=== PATIENT | male | born 1945 | race Caucasian/White ===

== ENCOUNTER → 2020-04-26 12:12 | Outpatient (BNVA) | payer MEDICARE, SELFPAY | PROVIDERS: PCP Internal Medicine; Visit Provider Orthopaedic Surgery | DX: M17.0 Bilateral primary osteoarthritis of knee (principal) | CPT/HCPCS: 20610; 99214; J1040 ==

== ENCOUNTER 2020-12-08 10:29 | Outpatient (REF) | payer MEDICARE, SELFPAY ==
[2020-12-08 11:34] LABS: Glucose Urine UA NEG (NEG); Leukocyte Esterase Urine NEG (NEG); Nitrite Urine NEG (NEG); PH 6.5 (5.0-8.0); Urine Blood NEG (NEG); Urine Ketones 5 MG/DL (NEG); Urine Protein NEG (NEG-TRACE)
[2020-12-08 11:35] LABS: Appearance Urine HAZY; Color Urine YELLOW
[2020-12-08 11:40] LABS: Hematocrit 45.6 % (42-52); Hemoglobin 15.2 g/dl (14.0-18.0); Mean Corpuscular HGB Conc 33.3 g/dl (31.0-36.0); Mean Corpuscular Hemoglobin 30.1 pg (27.0-33.0); Mean Corpuscular Volume 90.3 fL (80-98); Mean Platelet Volume 9.6 fL (9.4-12.4); Platelet Count 246 X10*3/uL (160-400); Red Blood Count 5.05 X10*6/uL (4.60-5.80); Red Cell Distribution Width 12.6 % (11.0-16.0); White Blood Count 6.8 X10*3/uL (4.8-10.8)
[2020-12-08 12:22] LABS: Prostate Specific Antigen 2.87 ng/mL (<0.05-4.0); Vitamin D 25-OH Total 42.9 ng/mL (>30)
[2020-12-08 12:30] LABS: Alanine Aminotransferase 29 U/L (0-40); Albumin Level 4.5 g/dL (3.5-5.0); Alkaline Phosphatase 74 U/L (39-117); Anion Gap 14 (12-20); Aspartate Amino Transferase 41 U/L (5-37); Bilirubin Total 0.8 mg/dL (0.0-1.0); Blood Urea Nitrogen 12 mg/dL (9-16); Calcium 9.6 mg/dL (8.4-10.2); Carbon Dioxide 27 mmol/L (22-29); Chloride 102 mmol/L (96-108); Cholesterol 200 mg/dL; Estimated Glomerular Filt Rate > 60; Glucose Fasting 97 mg/dL (60-99); HDL Cholesterol 72 mg/dL; LDL Cholesterol Calculated 112 mg/dl; Potassium 4.6 mmol/L (3.3-5.1); Sodium 138 mmol/L (135-145); Total Protein 7.2 g/dL (6.5-8.0); Triglycerides 81 mg/dL
== END 2020-12-08 10:30 | disposition home or self-care (01) ==
LOC: HO.LAB 10:29
PROVIDERS: PCP Internal Medicine; Visit Provider Internal Medicine
DX: Z00.00 Encounter for general adult medical examination without abnormal findings (principal); I10 Essential (primary) hypertension; E78.00 Pure hypercholesterolemia, unspecified; Z12.5 Encounter for screening for malignant neoplasm of prostate
CPT/HCPCS: 36415; 80053; 80061; 81003; 82306; 84153; 85027

== ENCOUNTER 2021-06-06 10:08 | Outpatient (REF) | payer MEDICARE, SELFPAY ==
[2021-06-06 14:28] LABS: Alanine Aminotransferase 30 U/L (0-40); Albumin Level 4.5 g/dL (3.5-5.0); Alkaline Phosphatase 72 U/L (39-117); Anion Gap 16 (12-20); Aspartate Amino Transferase 45 U/L (5-37); Bilirubin Total 0.6 mg/dL (0.0-1.0); Blood Urea Nitrogen 14 mg/dL (9-16); Calcium 9.8 mg/dL (8.4-10.2); Carbon Dioxide 24 mmol/L (22-29); Chloride 104 mmol/L (96-108); Estimated Glomerular Filt Rate > 60; Glucose Random 96 mg/dL (60-115); Magnesium 2.2 mg/dL (1.6-2.6); Potassium 4.7 mmol/L (3.3-5.1); Sodium 139 mmol/L (135-145); Total Protein 7.3 g/dL (6.5-8.0)
[2021-06-06 14:50] LABS: Free T4 (Free Thyroxine) 1.03 ng/dL (0.71-1.85)
== END 2021-06-06 10:09 | disposition home or self-care (01) ==
LOC: HO.10HDL 10:08
PROVIDERS: Visit Provider Internal Medicine
DX: I10 Essential (primary) hypertension (principal); E78.00 Pure hypercholesterolemia, unspecified; I49.1 Atrial premature depolarization
CPT/HCPCS: 36415; 80053; 83735; 84439

== ENCOUNTER 2021-07-18 08:07 | Outpatient (REF) | payer MEDICARE, SELFPAY ==
--- NOTE | ~2021-07-18 | XR_ITS ---
EXAMINATION: XR knee standing BI, XR knee RT 2V CLINICAL INFORMATION: Reason for Exam M25.561 - Pain in right knee COMPARISON: Right knee radiographs 12/29/2018 TECHNIQUE: Two views of the right knee and one view of the bilateral knees XR/XR knee RT 2V FINDINGS/IMPRESSION: No acute fracture or dislocation. Advanced degenerative changes of the right knee predominantly involving the medial compartment, progressed from prior with near complete loss of medial compartment joint space, and medial and patellofemoral compartment osteophytes. No right suprapatellar joint effusion. Limited single view of the left knee demonstrates mild narrowing of the medial and lateral compartments. Advanced atherosclerotic vascular calcification.
--- NOTE | ~2021-07-18 | XR_ITS ---
EXAMINATION: XR knee standing BI, XR knee RT 2V CLINICAL INFORMATION: Reason for Exam M25.561 - Pain in right knee COMPARISON: Right knee radiographs 12/29/2018 TECHNIQUE: Two views of the right knee and one view of the bilateral knees XR/XR knee standing BI FINDINGS/IMPRESSION: No acute fracture or dislocation. Advanced degenerative changes of the right knee predominantly involving the medial compartment, progressed from prior with near complete loss of medial compartment joint space, and medial and patellofemoral compartment osteophytes. No right suprapatellar joint effusion. Limited single view of the left knee demonstrates mild narrowing of the medial and lateral compartments. Advanced atherosclerotic vascular calcification.
== END 2021-07-18 08:08 | disposition home or self-care (01) ==
LOC: HO.HOSX 08:07
PROVIDERS: Visit Provider Physician Assistant
DX: M17.11 Unilateral primary osteoarthritis, right knee (principal); M25.562 Pain in left knee
CPT/HCPCS: 20610; 73560; 73565; 99212; J1040

== ENCOUNTER 2022-06-29 11:16 | Outpatient (REF) | payer MEDICARE, SELFPAY ==
--- NOTE | ~2022-06-29 | XR_ITS ---
EXAMINATION: XR FOOT, LEFT CLINICAL INFORMATION: Left foot pain. COMPARISON: Left knee radiographs dated 05/29/2018. TECHNIQUE: AP, lateral, and oblique views of the left foot. FINDINGS: There is no acute fracture or dislocation. The tarsal bones are normally aligned. There is a small to moderate plantar calcaneal spur without significant change. The joint spaces are unremarkable. Moderate to severe atherosclerosis. XR/XR foot LT min 3V IMPRESSION: Small to moderate plantar calcaneal spur without significant change. No acute abnormality. Moderate to severe atherosclerosis.
== END 2022-06-29 11:17 | disposition home or self-care (01) ==
LOC: HO.HMGCX 11:16
PROVIDERS: PCP Internal Medicine; Visit Provider Nurse Practitioner Family
DX: M79.672 Pain in left foot (principal)
CPT/HCPCS: 73630

== ENCOUNTER 2022-07-26 08:16 | Outpatient (REF) | payer MEDICARE, SELFPAY ==
[2022-07-26 11:20] LABS: MANUAL DIFF FLAG NO
[2022-07-26 11:27] LABS: Basophils Absolute Auto 0.1 X10*3/uL (0.0-0.2); Basophils Percent Auto 0.9 % (0-2); Eosinophils Absolute Auto 0.2 X10*3/uL (0.0-0.4); Eosinophils Percent Auto 3.3 % (0-4); Hematocrit 45.6 % (42.0-52.0); Hemoglobin 15.1 g/dl (14.0-18.0); Imm Gran Abs Auto 0.02 X10*3/uL (0.00-0.03); Imm Gran Pct Auto 0.3 % (0.0-0.4); Lymphocytes Absolute Auto 1.8 X10*3/uL (1.2-4.9); Lymphocytes Percent Auto 28.9 % (20-40); Mean Corpuscular HGB Conc 33.1 g/dl (31.0-36.0); Mean Corpuscular Hemoglobin 30.6 pg (27.0-33.0); Mean Corpuscular Volume 92.3 fL (80.0-98.0); Mean Platelet Volume 10.4 fL (9.4-12.4); Monocytes Absolute Auto 0.7 X10*3/uL (0.1-1.2); Monocytes Percent Auto 11.6 % (2-11); Neutrophils Absolute Auto 3.5 x10*3/uL (2.0-8.3); Platelet Count 259 X10*3/uL (160-400); Red Blood Count 4.94 X10*6/uL (4.60-5.80); Red Cell Distribution Width 12.9 % (11.0-16.0); White Blood Count 6.4 X10*3/uL (4.8-10.8)
[2022-07-26 12:02] LABS: Alanine Aminotransferase 18 U/L (0-40); Albumin Level 4.5 g/dL (3.5-5.0); Alkaline Phosphatase 72 U/L (39-117); Anion Gap 15 (12-20); Aspartate Amino Transferase 25 U/L (5-37); Bilirubin Total 0.7 mg/dL (0.0-1.0); Blood Urea Nitrogen 14 mg/dL (9-16); Calcium 9.9 mg/dL (8.4-10.2); Carbon Dioxide 26 mmol/L (22-29); Chloride 104 mmol/L (96-108); Cholesterol 198 mg/dL; Estimated Glomerular Filt Rate > 60; Glucose Fasting 101 mg/dL (60-99); HDL Cholesterol 71 mg/dL; LDL Cholesterol Calculated 109 mg/dl; Potassium 4.2 mmol/L (3.3-5.1); Sodium 141 mmol/L (135-145); Total Protein 7.2 g/dL (6.5-8.0); Triglycerides 92 mg/dL
[2022-07-26 12:07] LABS: Prostate Specific Antigen Scr 2.79 ng/mL (<0.05-4.0)
== END 2022-07-26 08:17 | disposition home or self-care (01) ==
LOC: HO.HMGCLDS 08:16
PROVIDERS: PCP Internal Medicine; Visit Provider Internal Medicine
DX: Z12.5 Encounter for screening for malignant neoplasm of prostate (principal); I10 Essential (primary) hypertension; E78.00 Pure hypercholesterolemia, unspecified; N40.0 Benign prostatic hyperplasia without lower urinary tract symptoms
CPT/HCPCS: 36415; 80053; 80061; 84153; 85025

== ENCOUNTER 2023-01-30 09:42 | Outpatient (REF) | payer MEDICARE, SELFPAY ==
[2023-01-30 11:04] LABS: MANUAL DIFF FLAG NO
[2023-01-30 11:41] LABS: Basophils Absolute Auto 0.1 X10*3/uL (0.0-0.2); Basophils Percent Auto 0.8 % (0-2); Eosinophils Absolute Auto 0.1 X10*3/uL (0.0-0.4); Eosinophils Percent Auto 1.6 % (0-4); Hematocrit 44.2 % (42.0-52.0); Hemoglobin 14.8 g/dl (14.0-18.0); Imm Gran Abs Auto 0.04 X10*3/uL (0.00-0.03); Imm Gran Pct Auto 0.5 % (0.0-0.4); Lymphocytes Absolute Auto 1.4 X10*3/uL (1.2-4.9); Lymphocytes Percent Auto 18.7 % (20-40); Mean Corpuscular HGB Conc 33.5 g/dl (31.0-36.0); Mean Corpuscular Hemoglobin 31.4 pg (27.0-33.0); Mean Corpuscular Volume 93.8 fL (80.0-98.0); Mean Platelet Volume 9.9 fL (9.4-12.4); Monocytes Absolute Auto 0.8 X10*3/uL (0.1-1.2); Monocytes Percent Auto 10.5 % (2-11); Neutrophils Absolute Auto 5.2 x10*3/uL (2.0-8.3); Neutrophils Percent Auto 67.9 % (45-73); Platelet Count 287 X10*3/uL (160-400); Red Blood Count 4.71 X10*6/uL (4.60-5.80); Red Cell Distribution Width 12.5 % (11.0-16.0); White Blood Count 7.6 X10*3/uL (4.8-10.8)
[2023-01-30 12:00] LABS: Anion Gap 13 (12-20); Blood Urea Nitrogen 19 mg/dL (9-16); Calcium 10.2 mg/dL (8.4-10.2); Carbon Dioxide 26 mmol/L (22-29); Chloride 104 mmol/L (96-108); Estimated Glomerular Filt Rate > 60; Glucose Random 135 mg/dL (60-115); Potassium 4.5 mmol/L (3.3-5.1); Sodium 138 mmol/L (135-145)
[2023-01-30 12:21] LABS: Free T4 (Free Thyroxine) 0.93 ng/dL (0.71-1.85)
== END 2023-01-30 09:43 | disposition home or self-care (01) ==
LOC: HO.10HDL 09:42
PROVIDERS: Visit Provider Internal Medicine
DX: I10 Essential (primary) hypertension (principal); E78.00 Pure hypercholesterolemia, unspecified; R00.8 Other abnormalities of heart beat
CPT/HCPCS: 36415; 80048; 83735; 84439; 85025

== ENCOUNTER → 2023-03-27 13:39 | Outpatient (REF) | payer MEDICARE, SELFPAY ==
--- NOTE | 2023-03-27 13:42 | CA_ITS ---
Transthoracic Echocardiogram Patient (Last, First, Middle): Basim Vasques D Gender: Male Date of : 1945 Age: 77 Procedure Date: 03/27/2023 Procedure Type: Transthoracic Echocardiogram Location: OP Height: 167.64 cm Weight: 68.04 kg BSA: 1.77 m2 Heart Rate: bpm BP: 140 / 70 mmHg Signal Worker: DELMIS Referring MD: Micheal Rosas MD Body Design Checker: Toñito Acevedo MD Symptoms: I49.8 CA ARRHYTHMIA BIGEMINY, HTN Study Quality: Adequate ECG Rhythm: Sinus Conclusions: - 1. Normal LV ejection fraction 55-60% with grade 1 diastolic dysfunction 2. Normal cardiac valvular Dopplers 3. Normal RV systolic pressure 4. No gross pericardial effusion Findings Left Ventricle Normal left ventricular size, thickness, and systolic function. The visually estimated ejection fraction is between 55-60%. Spectral Doppler is indicative of an impaired relaxation filling pattern. E/E prime ratio is <8, consistent with normal filling pressures. Evidence suggests grade I (mild) diastolic dysfunction. Peak GLS is -18.4%, within normal limits. Right Ventricle Normal right ventricular cavity size and systolic function. Atria Both atria are normal in size. There is lipomatous hypertrophy of the interatrial septum. There is no evidence of interatrial shunt. Aortic Valve The aortic valve structure and function is likely normal. There is no aortic valve stenosis. There is no aortic valve regurgitation. Mitral Valve Likely normal mitral valve structure and function. There is trace mitral valve regurgitation. There is no mitral valve stenosis. Pulmonic Valve The pulmonic valve was not well visualized. Tricuspid Valve Likely normal tricuspid valve structure and function. There is trace tricuspid valve regurgitation. The right ventricular systolic pressure is normal. The right ventricular systolic pressure is 27 mmHg. Normal right atrial pressure. There is no evidence of pulmonary hypertension. Great Vessels All visible segments of the aorta are normal in size. The pulmonary artery was not well visualized. Venous The inferior vena cava is normal in size and collapses greater than 50% with inspiration. Pericardium/Pleural There is no evidence of pericardial effusion. Prior Study Comparison No prior study available for comparison. Measurements 2D Linear Measurements IVSd: 0.83 0.6-0.9/0.6-1.0 cm LVIDd: 4.21 3.9-5.3/4.2-5.9 cm LVIDd Index: 2.38 2.4-3.2/2.2-3.1 cm/m2 LVIDs: 1.95 2.0-3.6 cm LVPWd: 0.82 0.7-1.1 cm LA Diam: 2.90 2.7-3.8/3.0-4.0 cm LAIDs Index: 1.64 1.5-2.3 cm/m2 LV Mass: 131.14 67-162/88-224 g LV Mass Index: 74.09 43-95/49-115 g/m2 LVOT Diam: 2.00 3.0+(-)1.3 cm 2D Systolic Function EF 4C: 60.90 >55% EF 2C: 59.90 >55% EF BiP: 59.50 >55% Mitral Valve MV Pk E: 0.96 MV PK A: 1.23 MV Decel Time: 334.00 E/A: 0.80 E'Lateral: 10.10 E'Medial: 7.07 E/E' Med: 13.60 E/E' Lat: 9.50 PHT: 98.00 MVA PHT: 2.24 Decel Lea: 2.88 Aortic Valve AoV Pk Dony: 1.79 AoV Mn Dony: 1.21 AoV VTI: 0.39 AoV Pk Grad: 13.00 Aov Mn Grad: 7.00 CATE Cont.VTI: 2.24 LVOT LVOT Pk Dony: 1.26 LVOT Mn Dony: 0.82 LVOT VTI: 0.28 LVOT Pk Grad: 6.00 LVOT Mn Grad: 3.00 LVOT Diam: 2.00 LVOT Area: 3.14 Diastolic Function MV Pk E: 0.96 MV Pk A: 1.23 E/A: 0.80 E'Medial: 7.07 E/E' Med: 13.60 E' Laterial: 10.10 E/E' Lat: 9.50 Right Ventricle TAPSE (mm): 26.50 TVS' Dony: 15.30 Tricuspid Valve TR Pk Dony: 2.46 TR Pk Grad: 24.00 RA Press: 3.00 RVSP: 27.00 Great Vessels Aorta Sinus of Valsalva: 3.87 2.0-3.[address] Ridge: 3.16 1.7-3.4 cm Ao Asc: 3.70 2.1-3.4 cm Updated in Other Vendor System with Status of Final Toñito Acevedo MD electronically signed on 03/27/2023 3:52:56 PM with status of Final
--- NOTE | 2023-03-27 13:44 | HM_ITS ---
Conclusion: 1. Patient was monitored for total period of 2 days and 22 hours 2. Baseline was normal sinus rhythm with average heart of 75 beats per minute 3. No significant pauses noted next 4. Frequent PACs noted with total burden of 3.7% with 5 short SVT events longest lasting 6 beats and the fastest 167 beats per minute 4. Frequent PVCs noted with total burden of 1.3% with 1 nonsustained VT episode at 21:40 9 beats per minute lasting 3 beats 5. No patient reported events MTDD
== END ==
LOC: HO.CARD 13:39
PROVIDERS: PCP Internal Medicine; Visit Provider Internal Medicine
DX: I49.8 Other specified cardiac arrhythmias (principal)
CPT/HCPCS: 93242; 93306; 93356

== ENCOUNTER → 2023-03-27 13:42 | Outpatient (BNV) | payer MEDICARE, SELFPAY | PROVIDERS: PCP Internal Medicine; Visit Provider Internal Medicine Cardiovascular Disease | DX: I49.1 Atrial premature depolarization (principal) | CPT/HCPCS: 93244; 93306 ==

== ENCOUNTER 2023-11-10 08:04 | Outpatient (REF) | payer MEDICARE, SELFPAY ==
[2023-11-10 08:29] LABS: MANUAL DIFF FLAG NO
[2023-11-10 09:19] LABS: Basophils Absolute Auto 0.1 X10*3/uL (0.0-0.2); Basophils Percent Auto 0.6 % (0-2); Eosinophils Absolute Auto 0.2 X10*3/uL (0.0-0.4); Eosinophils Percent Auto 2.1 % (0-4); Hematocrit 46.2 % (42.0-52.0); Hemoglobin 15.6 g/dl (14.0-18.0); Imm Gran Abs Auto 0.02 X10*3/uL (0.00-0.03); Imm Gran Pct Auto 0.3 % (0.0-0.4); Lymphocytes Absolute Auto 1.8 X10*3/uL (1.2-4.9); Lymphocytes Percent Auto 22.2 % (20-40); Mean Corpuscular HGB Conc 33.8 g/dl (31.0-36.0); Mean Corpuscular Hemoglobin 30.7 pg (27.0-33.0); Mean Corpuscular Volume 90.9 fL (80.0-98.0); Mean Platelet Volume 10.1 fL (9.4-12.4); Monocytes Absolute Auto 0.9 X10*3/uL (0.1-1.2); Monocytes Percent Auto 11.1 % (2-11); Neutrophils Percent Auto 63.7 % (45-73); Platelet Count 288 X10*3/uL (160-400); Red Blood Count 5.08 X10*6/uL (4.60-5.80); Red Cell Distribution Width 13.1 % (11.0-16.0); White Blood Count 7.9 X10*3/uL (4.8-10.8)
[2023-11-10 09:29] LABS: Appearance Urine Clear; Color Urine Yellow; Glucose Urine UA Negative (Negative); Leukocyte Esterase Urine Small (1+) (Negative); Nitrite Urine Negative (Negative); PH 6.5 (5.0-9.0); Specific Gravity - Urine 1.015 (1.005-1.025); UMIC TRIGGER UA YES; Urine Blood Negative (Negative); Urine Ketones Negative (Negative); Urine Protein Negative (Neg-Trace)
[2023-11-10 09:55] LABS: Alanine Aminotransferase 25 U/L (0-40); Albumin Level 4.4 g/dL (3.5-5.0); Alkaline Phosphatase 68 U/L (39-117); Anion Gap 13 (12-20); Aspartate Amino Transferase 32 U/L (5-37); Bilirubin Total 0.8 mg/dL (0.0-1.0); Blood Urea Nitrogen 13 mg/dL (9-16); Calcium 10.2 mg/dL (8.4-10.2); Carbon Dioxide 26 mmol/L (22-29); Chloride 104 mmol/L (96-108); Cholesterol 208 mg/dL (<200); Estimated Glomerular Filt Rate > 60; Glucose Fasting 89 mg/dL (60-99); HDL Cholesterol 71 mg/dL (>40); LDL Cholesterol Calculated 117 mg/dL (<100); Potassium 4.4 mmol/L (3.3-5.1); Sodium 139 mmol/L (135-145); Total Protein 7.7 g/dL (6.5-8.0); Triglycerides 104 mg/dL (<150)
[2023-11-10 10:00] LABS: Prostate Specific Antigen 2.98 ng/mL (<0.05-4.0)
[2023-11-10 11:39] LABS: Bacteria Urine None Seen (None Seen); Hyaline Casts Urine 0-2 /LPF (0-2); RBC Urine 0-2 /HPF (0-2); Squamous Epithelial Cell Urine 0-2 /HPF (0-2); WBC Urine 0-5 /HPF (0-5)
== END 2023-11-10 08:05 | disposition home or self-care (01) ==
LOC: HO.LAB 08:04
PROVIDERS: PCP Internal Medicine; Visit Provider Internal Medicine
DX: I10 Essential (primary) hypertension (principal); E78.00 Pure hypercholesterolemia, unspecified; R35.1 Nocturia; K57.90 Diverticulosis of intestine, part unspecified, without perforation or abscess without bleeding; Z12.5 Encounter for screening for malignant neoplasm of prostate
CPT/HCPCS: 36415; 80053; 80061; 81001; 84153; 85025

== ENCOUNTER 2024-09-29 15:33 | Outpatient (AMB) | payer MEDICARE, SELFPAY ==
[2024-09-29 15:37] VITALS: BP 122/68; PULSE 92; RESP 14; TEMP 36.6; O2SAT 97; BMI 23.6
--- NOTE | 2024-09-29 15:37 | A.OFFPC_ITS ---
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 Accompanied by: Self / Same As Patient Allergies No Known Allergies Allergy (Mild, Verified 09/29/24 16:07) NOT APPLICABLE Medication List - Last Reconciled 09/29/24 by Diego Pollard MD amlodipine 10 mg PO DAILY lisinopril 20 mg PO DAILY metoprolol succinate ER 25 mg PO DAILY simvastatin 40 mg PO BEDTIME Tobacco use date assessed: 09/29/24 Fall risk assessment: No Falls in past year Last assessed Fall Risk: 09/29/24 Dental Screening Dental Screen Date: 09/29/24 Did you have a dental visit in the last 12 months?: Yes Did you have a dental problem in the last 6 months where you did not have access to dental care?: No [facility] Medical History (Updated 09/29/24 @ 16:06 by Diego Pollard MD) Left foot pain Diverticulosis Hyperlipidemia HTN (hypertension) Surgical History History of colectomy History of colonoscopy Family History Father Diabetes Sister Uterine cancer Social History Housing: Apartment Alcohol intake: current Alcohol intake frequency: 3 or more drinks per day Alcohol type: beer Patient Tobacco Use Status: Former Tobacco user service: Yes Current occupational status: retired Cognitive needs: No Hearing needs: No Vision needs: Yes (reading glasses) Questionnaire PHQ-9 Over the last 2 weeks, how often have you been bothered by any of the following problems? 1. Little interest or pleasure in doing things: not at all 2. Feeling down, depressed, or hopeless: not at all 3. Trouble falling or staying asleep, or sleeping too much: not at all 4. Feeling tired or having little energy: not at all 5. Poor appetite or overeating: not at all 6. Feeling bad about yourself - or that you are a failure or have let yourself or your family down: not at all 7. Trouble concentrating on things, such as reading the newspaper or watching television: not at all 8. Moving or speaking so slowly that other people could have noticed. Or the opposite - being so fidgety or restless that you have been moving around a lot more than usual: not at all 9. Thoughts that you would be better off or of hurting yourself in some way: not at all Total score: 0 Source: Developed by Drs. Basim Umana, Aida Ha, Mack Yates and colleagues, with an educational lu from [employer]. Thrive Questionnaire Date Thrive assessed: 09/29/24 I am a: Patient What is your living situation today?: I have a steady place to live Within the past 12 months, did the food you bought not last and you didn't have the money to get more?: Never true Within the past 12 months, did you worry whether your food would run out before you got money to buy more?: Never true Do you have trouble paying for medicines?: No Do you have trouble getting transportation to medical appointments?: No Do you have trouble paying your heating and electricity bill?: No Do you have trouble taking care of your child, family member or friend?: No Do you have trouble with day-to-day activities such as bathing, preparing meals, shopping, managing finances, etc.?: No Are you currently unemployed and looking for a job?: No Are you interested in more education?: No THRIVE Score: 0 AUDIT C Alcohol Use Questionnaire (AUDIT-C) 1. How often do you have a drink containing alcohol?: 4 or more times a week 2. How many drinks containing alcohol do you have on a typical day when you are drinking?: 3 or 4 3. How often do you have six or more drinks on one occasion?: Daily or almost daily Total Score: 9 FLO-7 AMB Questionnaire FLO-7 Date FLO - 7 assessed: 09/29/24 Feeling nervous, anxious, or on edge: 0 = Not at all Not being able to stop or control worryin = Not at all Worrying too much about different things: 0 = Not at all Trouble relaxin = Not at all Being so restless that it is hard to sit still: 0 = Not at all Becoming easily annoyed or irritable: 0 = Not at all Feeling afraid as if something awful might happen: 0 = Not at all Total FLO-7 score (0-4 normal; 5-9 mild; 10-14 moderate; 15-21 severe): 0 Source: Developed by Drs. Basim Umana, Aida Ha, Mack Yates and colleagues, with an educational lu from [employer]. Physical exam (Primary Care) Vital Signs: Last Vital Signs Temp 97.9 F 09/29/24 15:37 Pulse 92 09/29/24 15:37 Resp 14 09/29/24 15:37 BP 122/68 09/29/24 15:37 Pulse Ox 97 09/29/24 15:37 Oxygen Delivery Method Room Air 09/29/24 15:37 BP in range BMI result Body Mass Index 23.6 Tobacco/Smoking Status: Tobacco use Status Tobacco use date assessed 09/29/24 09/29/24 15:49 Patient Tobacco Use Status Former Tobacco user 09/29/24 15:49 PHQ-9: PHQ-9 Score PHQ-9: Total score 0 09/29/24 15:50 Thrive Assessment: Date of Thrive Assessment Date Thrive assessed 09/29/24 09/29/24 15:49 Coding Level of Care Code New Pt Level 4 (78417) Complex EM visit Add On G2211 Diagnoses HTN (hypertension) I10 Assessment & Plan Assessment & Plan (1) HTN (hypertension): Code(s): I10 - Essential (primary) hypertension Category: Medical Plan: BP in range. Continue medications at same dosage. Plan History of Present Illness The patient is a 78-year-old male presenting for a wellness visit. He is adjusting to a new care provider following the penitentiary of his previous physician. Currently, he does not report any acute health concerns, stating he manages his health through routine medications, which have remained unchanged and effective over time. He brought up his alcohol consumption as a notable personal habit, acknowledging frequent intake during social interactions. The patient consumes beer regularly with friends, valuing these moments for personal fulfillment. Despite this pattern, he reported no history of legal issues or significant health disturbances attributable to alcohol use. 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 - Lives alone, but maintains an active social life. - Engages in daily social outings, often accompanies a friend. - Reports frequent alcohol consumption, mainly beer, during social gatherings. - Occasionally consumes hard liquor but denies excessive use or history of legal issues related to alcohol. - Expresses satisfaction and contentment with current social habits. Review of Systems - General: Reports no acute concerns; Overall, feels well. - Cardiovascular: Denies changes in blood pressure control. - Psychiatric: Denies any arrests or significant emotional disturbances related to alcohol use. Physical Exam General: Cooperative and healthy appearing Nutritional Appearance: Well nourished Orientation/consciousness: Patient oriented x3 Limitations: No limitations Head: Normal to inspection General: Appearance normal, both eyes and all related structures Neck: Normal visual inspection Chest: Normal palpation of entire chest wall Respiratory: Normal respiratory effort Neurology: Patient oriented x3 Results Plan The patient will maintain his current medication regimen, given the effective control of his health conditions thus far. I will order blood work to monitor his general health and liver function due to his regular alcohol consumption. Continued emphasis on the moderation of his alcohol intake was discussed, without introducing any immediate intervention, stressing vigilance in avoiding drinking and driving. Plans for follow-up appointments will be made to revisit these health discussions and lab results. Patient was informed and verbally consented to the use of an ambient scribe for clinic note documentation during this visit. Discussion Notes During our discussion, I reviewed with the patient that his overall health maintenance appears satisfactory, with controlled blood pressure and stable medication effectiveness. We talked about the importance of routine blood work for ongoing monitoring, particularly focusing on liver function due to his regular alcohol consumption. I shared concerns about alcohol intake levels and encouraged moderation for long-term wellness. We discussed being attentive to not drink and drive for his safety and that of others. The patient consented to lab tests, and I informed him about scheduling follow-ups to assess his preventive health strategies, lab outcomes, and ensure a consistent transition under my care. Patient Instructions - Continue current medications as prescribed. - Attend scheduled blood work, fasting in the morning. - Limit alcohol intake, focusing on moderation. - Avoid driving after consuming alcohol. - Attend the follow-up appointment to discuss lab results and ongoing care. - Engage in consistent health monitoring and maintenance activities. Orders: Orders Lipid Panel Today I10 - Essential (primary) hypertension Thyroid Stimulating Hormone Today I10 - Essential (primary) hypertension Basic Metabolic Panel Today I10 - Essential (primary) hypertension Liver Panel Today I10 - Essential (primary) hypertension UA and rflx microscopic Today I10 - Essential (primary) hypertension
== END 2024-09-29 16:07 | disposition home or self-care (01) ==
LOC: HO.HMCHD 15:33
PROVIDERS: PCP Internal Medicine; Visit Provider Internal Medicine
DX: I10 Essential (primary) hypertension (principal)

== ENCOUNTER → 2024-09-29 15:33 | Outpatient (BNVA) | payer MEDICARE, SELFPAY | PROVIDERS: PCP Internal Medicine; Visit Provider Internal Medicine | DX: I10 Essential (primary) hypertension (principal) | CPT/HCPCS: 99202 ==

== ENCOUNTER 2025-01-10 10:57 | Outpatient (AMB) | payer MEDICARE, SELFPAY ==
[2025-01-10 11:04] VITALS: BP 126/72; PULSE 101; TEMP 36.2; O2SAT 98; BMI 23.2
--- NOTE | 2025-01-10 11:04 | MHC.PC.OV ---
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 Accompanied by: Self / Same As Patient Allergies No Known Allergies Allergy (Mild, Verified 01/10/25 11:23) NOT APPLICABLE Medication List - Last Reconciled 01/10/25 by Diego Pollard MD amlodipine 10 mg PO DAILY lisinopril 20 mg PO DAILY metoprolol succinate ER 25 mg PO DAILY simvastatin 40 mg PO BEDTIME Tobacco use date assessed: 01/10/25 Fall risk assessment: No Falls in past year Last assessed Fall Risk: 01/10/25 Dental Screening Dental Screen Date: 01/10/25 Did you have a dental visit in the last 12 months?: Yes Did you have a dental problem in the last 6 months where you did not have access to dental care?: No [facility] Medical History Left foot pain Diverticulosis Hyperlipidemia HTN (hypertension) Surgical History History of colectomy History of colonoscopy Family History Father Diabetes Sister Uterine cancer Mother No problems noted. Father No problems noted. Social History Housing: Apartment Alcohol intake: current Alcohol intake frequency: 3 or more drinks per day Alcohol type: beer Patient Tobacco Use Status: Former Tobacco user e-Cigarette/Vaping Use: Former Use service: Yes Current occupational status: retired Cognitive needs: No Hearing needs: No Vision needs: Yes (reading glasses) Questionnaire PHQ-9 Over the last 2 weeks, how often have you been bothered by any of the following problems? 1. Little interest or pleasure in doing things: not at all 2. Feeling down, depressed, or hopeless: not at all 3. Trouble falling or staying asleep, or sleeping too much: not at all 4. Feeling tired or having little energy: not at all 5. Poor appetite or overeating: not at all 6. Feeling bad about yourself - or that you are a failure or have let yourself or your family down: not at all 7. Trouble concentrating on things, such as reading the newspaper or watching television: not at all 8. Moving or speaking so slowly that other people could have noticed. Or the opposite - being so fidgety or restless that you have been moving around a lot more than usual: not at all 9. Thoughts that you would be better off or of hurting yourself in some way: not at all Total score: 0 Source: Developed by Drs. Basim Umana, Aida Ha, Mack Yates and colleagues, with an educational lu from [employer] Thrive Questionnaire Date Thrive assessed: 01/10/25 I am a: Patient Within the past 12 months, did the food you bought not last and you didn't have the money to get more?: Never true Within the past 12 months, did you worry whether your food would run out before you got money to buy more?: Never true Do you have trouble paying for medicines?: No Do you have trouble getting transportation to medical appointments?: No Do you have trouble paying your heating and electricity bill?: No Do you have trouble taking care of your child, family member or friend?: No Do you have trouble with day-to-day activities such as bathing, preparing meals, shopping, managing finances, etc.?: No Are you currently unemployed and looking for a job?: No Are you interested in more education?: No THRIVE Score: 0 AUDIT C Alcohol Use Questionnaire (AUDIT-C) 1. How often do you have a drink containing alcohol?: Monthly or less 2. How many drinks containing alcohol do you have on a typical day when you are drinking?: 1 or 2 3. How often do you have six or more drinks on one occasion?: Less than monthly Total Score: 2 FLO-7 AMB Questionnaire FLO-7 Date FLO - 7 assessed: 01/10/25 Feeling nervous, anxious, or on edge: 0 = Not at all Not being able to stop or control worryin = Not at all Worrying too much about different things: 0 = Not at all Trouble relaxin = Not at all Being so restless that it is hard to sit still: 0 = Not at all Becoming easily annoyed or irritable: 0 = Not at all Feeling afraid as if something awful might happen: 0 = Not at all Total FLO-7 score (0-4 normal; 5-9 mild; 10-14 moderate; 15-21 severe): 0 Source: Developed by Drs. Basim Umana, Aida Ha, Mack Yates and colleagues, with an educational lu from [employer] Physical exam (Primary Care) Vital Signs: Last Vital Signs Temp 97.1 F 01/10/25 11:04 Pulse 101 H 01/10/25 11:04 BP 126/72 01/10/25 11:04 Pulse Ox 98 01/10/25 11:04 Oxygen Delivery Method Room Air 01/10/25 11:04 BMI result Body Mass Index 23.2 Tobacco/Smoking Status: Tobacco use Status Tobacco use date assessed 01/10/25 01/10/25 11:09 Patient Tobacco Use Status Former Tobacco user 01/10/25 11:09 e-Cigarette/Vaping Use Former Use 01/10/25 11:09 PHQ-9: PHQ-9 Score PHQ-9: Total score 0 01/10/25 11:09 Thrive Assessment: Date of Thrive Assessment Date Thrive assessed 01/10/25 01/10/25 11:09 Coding Level of Care Code Est Pt Level 3 (51282) Complex EM visit Add On G2211 Diagnoses HTN (hypertension) I10 Assessment & Plan Assessment & Plan (1) HTN (hypertension): Code(s): I10 - Essential (primary) hypertension Category: Medical Plan: BP is in range. Continue current medications. Plan History of Present Illness - The patient is a 79-year-old male presenting for a routine visit. - The patient did not report any specific health concerns or symptoms during the visit. - The patient was reminded to complete the previously ordered blood work, which he had not done due to misunderstanding the process. - The patient committed to completing the blood work within the next week. Social History - The patient mentioned not having a computer, indicating limited access to digital resources. Review of Systems - General: Denies any complaints or symptoms. Physical Exam General: Cooperative and healthy appearing Nutritional Appearance: Well nourished Orientation/consciousness: Patient oriented x3 Limitations: No limitations Head: Normal to inspection General: Appearance normal, both eyes and all related structures Neck: Normal visual inspection Chest: Normal palpation of entire chest wall Respiratory: Normal respiratory effort Neurology: Patient oriented x3 Results Plan Discussion Notes I discussed with the patient the importance of completing the blood work to monitor his health status, emphasizing that he can go to the lab and provide his name for the tests to be conducted. I advised him to complete the blood work within a week and reassured him that no computer is needed for this process. Patient Instructions - Please go to the lab downstairs and provide your name to complete the blood work. - Complete the blood work within the next week.
--- OUTSIDE RECORDS SUMMARY | 2025-01-10 12:27 | XMS_ITS | Patient Health Record ---
Author Organization [facility] Address [address] [place] [address] Care Team Providers Care Business Professor Name Role Phone Micheal Rosas MD Primary Care Provider Basim Dickey Unavailable [phone] Reason For Referral No Information Plan Of Treatment No Information Insurance Providers Payer Name Payer Address Payer Phone Subscriber Number Group Number Insured Name Patient Relationship to Insured Coverage Start Date Coverage End Date [facility] [address] [place] [phone] [id number] BASIM CALDERON Self - patient is the insured
== END 2025-01-10 11:24 | disposition home or self-care (01) ==
LOC: HO.HMCHD 10:57
PROVIDERS: PCP Internal Medicine; Visit Provider Internal Medicine
DX: I10 Essential (primary) hypertension (principal)

== ENCOUNTER → 2025-01-10 10:57 | Outpatient (BNVA) | payer MEDICARE, SELFPAY | PROVIDERS: PCP Internal Medicine; Visit Provider Internal Medicine | DX: I10 Essential (primary) hypertension (principal) | CPT/HCPCS: 96127; 99212 ==

== ENCOUNTER 2025-02-07 18:00 | Emergency (ER) | payer MEDICARE, SELFPAY ==
--- NOTE | ~2025-02-07 | CT_ITS ---
CLINICAL HISTORY: trauma CT cervical spine without contrast Comparison: None provided Findings: Vertebral alignment is within normal limits. No acute fractures or dislocations. No cervical fluid collections or masses. No consolidation or effusion at the lung apices. IMPRESSION: No acute findings. This document has been electronically signed by: Chato Benavides MD on 02/07/2025 20:12:43
--- NOTE | ~2025-02-07 | CT_ITS ---
CLINICAL HISTORY: trauma CT head without contrast COMPARISON: None FINDINGS: Left parietal scalp laceration and hematoma. Global cerebral volume loss and chronic microvascular ischemic changes. No acute intracranial hemorrhage, extra-axial fluid collection, mass effect, or midline shift. Ventricular system and basilar cisterns are patent. Rothman-white matter differentiation is maintained. No gross orbital abnormality. No suspicious or acute bone lesion. Mastoid air cells and paranasal sinuses are predominantly clear. IMPRESSION: 1. No acute intracranial abnormality. 2. Global cerebral volume loss and chronic microvascular ischemic changes. This document has been electronically signed by: Chato Benavides MD on 02/07/2025 20:12:26
[2025-02-07 18:12] VITALS: BP 135/68; BP 152/76; PULSE 88; PULSE 96; RESP 18; TEMP 36.6; O2SAT 95; BMI 23.9
[2025-02-07 18:23] VITALS: BP 135/68; PULSE 88; RESP 18; TEMP 36.6; O2SAT 95
--- NOTE | 2025-02-07 18:23 | ED.GENADULT ---
HPI - General Adult General Chief complaint: Head Injury Stated complaint: Fall w head strike, no LOC Time Seen by Provider: 02/07/25 18:09 Source: patient Limitations: no limitations History of Present Illness ED Provider: Waleska Kaye PA-C HPI narrative: Patient is a 79 year old male with pmhx of HTN and osteoarthritis of the BL knees who presents to the ED after a fall with a head strike. He reports drinking 3 beers prior to falling. States he isn't sure what happened, he lost his balance and fell while in the package store. Reports dizziness at the time of the fall. Reports mild pain on the back of his head where he sustained a laceration. He rates the pain a 2/10. Denies vision changes, LOC, headaches, N/V. Patient is not on a blood thinner. Tetanus is not up-to-date. Location: head Radiation: non-radiation Severity: mild Severity scale (1-10): 2 Associated symptoms: denies other symptoms Treatments prior to arrival: none Related Data Home Medications ?Medication ?Instructions ?Recorded ?Confirmed simvastatin 40 mg tablet 40 mg PO BEDTIME 04/19/20 06/29/22 Previous Rx's ?Medication ?Instructions ?Recorded amlodipine 10 mg tablet 10 mg PO DAILY #90 tabs 12/14/24 lisinopril 20 mg tablet 20 mg PO DAILY #90 tabs 12/14/24 metoprolol succinate 25 mg 25 mg PO DAILY #90 tabs 12/14/24 tablet,extended release 24 hr Allergies Allergy/AdvReac Type Severity Reaction Status Date / Time No Known Allergies Allergy Mild NOT Verified 02/07/25 18:17 APPLICABLE [facility] Past Medical History Medical History Left foot pain Diverticulosis Hyperlipidemia HTN (hypertension) Surgical History History of colectomy History of colonoscopy Family History Family History Father Diabetes Sister Uterine cancer Mother No problems noted. Father No problems noted. Social History Social History Housing: Apartment Alcohol intake: current Alcohol intake frequency: 3 or more drinks per day Alcohol type: beer Patient Tobacco Use Status: Former Tobacco user Smoked in Last 30 Days: No e-Cigarette/Vaping Use: Former Use Use of substances other than those prescribed or required for medical reasons: No Advance Directives: No Advance Directives Information Provided: No Do you have a plan to hurt others: No Plan service: Yes Current occupational status: retired Cognitive needs: No Hearing needs: No Vision needs: Yes (reading glasses) Physical Exam ED Vital Signs: Vital Signs - 24 hr 02/07/25 18:12 02/07/25 18:23 02/07/25 19:27 Temperature 97.8 F 97.8 F 98.1 F Pulse Rate 88 88 91 Respiratory Rate 18 18 Blood Pressure 135/68 135/68 146/71 H Pulse Oximetry 95 95 97 Oxygen Delivery Method Room Air Room Air Room Air BMI result Body Mass Index 23.9 Medications Administered Discontinued Medications Generic Name Dose Route Start Last Admin Trade Name Freq PRN Reason Stop Dose Admin Lidocaine/Epinephrine 10 ml 02/07/25 18:11 02/07/25 19:58 Lidocaine Hcl 1%/Epi 1:100,000 10 Ml Vial INFILTRATI 02/07/25 18:12 10 ml ONCE ONE Administration Procedures Laceration Laceration 1: Site: scalp (Posterior) Side (If applicable): left (Posterior scalp) Size (cm): 4 Description: linear Depth: simple, single layer Local Anesthetic: lidocaine 1% and with epi Amount of anesthesia used (mL): 5 Pre-repair: wound explored and irrigated extensively Skin layer closed with: other (mami) Number of sutures: 9 (mami) Medical Decision Making Medical Decision Making MDM Narrative: Patient is a 79 year old male with pmhx of HTN and osteoarthritis of the BL knees who presents to the ED after a fall with a head strike. He reports drinking 3 beers prior to falling. States he isn't sure what happened, he lost his balance and fell while in the package store. Reports dizziness at the time of the fall. Reports mild pain on the back of his head where he sustained a laceration. He rates the pain a 2/10. Denies vision changes, LOC, headaches, N/V. Patient is not on a blood thinner. Tetanus is not up-to-date. No relevant chronic issues History: Per patient I have considered the following differential diagnoses: Alcohol intoxication, mechanical fall, intracranial hemorrhage, cervical spine injury, laceration, abrasion, contusion Plan: Patient admits to consuming alcohol, given his age and he may not be the most reliable historian, we will be scanning his head and neck. To note he is alert and oriented. We will screen basic labs including serum ethanol in the event that he sustained an acute injury that requires further intervention. In regard to the laceration it will require simple repair with mami. Updating his tetanus. I have independently reviewed the following tests: Labs: No leukocytosis, not anemic, no electrolyte abnormality noted, serum ethanol 74 CT brain:IMPRESSION: 1. No acute intracranial abnormality. 2. Global cerebral volume loss and chronic microvascular ischemic changes. CT cervical spine:Findings: Vertebral alignment is within normal limits. No acute fractures or dislocations. No cervical fluid collections or masses. No consolidation or effusion at the lung apices. IMPRESSION: No acute findings. Lab Data 02/07/25 18:35 02/07/25 18:35 Labs: Lab Results 02/07/25 Range/Units 18:35 WBC 9.4 (4.8-10.8) X10*3/uL RBC 4.78 (4.60-5.80) X10*6/uL Hgb 15.1 (14.0-18.0) g/dl Hct 43.3 (42.0-52.0) % MCV 90.6 (80.0-98.0) fL MCH 31.6 (27.0-33.0) pg MCHC 34.9 (31.0-36.0) g/dl RDW 12.7 (11.0-16.0) % Plt Count 250 (160-400) X10*3/uL MPV 9.0 L (9.4-12.4) fL Immature Gran % (Auto) 0.4 (0.0-0.4) % Neut % (Auto) 65.5 (45-73) % Lymph % (Auto) 21.8 (20-40) % [place] % (Auto) 9.6 (2-11) % Eos % (Auto) 2.2 (0-4) % Baso % (Auto) 0.5 (0-2) % Lymph # (Auto) 2.0 (1.2-4.9) X10*3/uL [place] # (Auto) 0.9 (0.1-1.2) X10*3/uL Eos # (Auto) 0.2 (0.0-0.4) X10*3/uL Baso # (Auto) 0.1 (0.0-0.2) X10*3/uL Abs Immat Gran (auto) 0.04 H (0.00-0.03) X10*3/uL Absolute Neuts (auto) 6.1 (2.0-8.3) x10*3/uL Absolute Nucleated RBC 0.000 (0.0-0.012) X10*3/uL Nucleated RBC % (auto) 0.0 (0.0-0.2) /100WBC Sodium 135 (135-145) mmol/L Potassium 4.0 (3.3-5.1) mmol/L Chloride 102 (96-108) mmol/L Carbon Dioxide 21 L (22-29) mmol/L Anion Gap 16 (12-20) BUN 14 (9-16) mg/dL Creatinine 0.94 (0.5-1.4) mg/dL Estim Creat Clear Calc 60.5 Estimated GFR > 60 Random Glucose 100 (60-115) mg/dL Calcium 9.5 D (8.4-10.2) mg/dL Total Bilirubin 0.4 (0.0-1.0) mg/dL AST 37 (5-37) U/L ALT 27 (0-40) U/L Alkaline Phosphatase 67 (39-117) U/L Total Protein 7.8 (6.5-8.0) g/dL Albumin 4.7 (3.5-5.0) g/dL Ethyl Alcohol 74 mg/dL Discharge Plan Discharge Clinical Impression: Laceration of scalp, Contusion of scalp Patient Disposition: Home, Self-Care Instructions: Laceration (ED), Scalp Contusion in Adults (ED) Additional Instructions: All of your screening labs were normal. There were no acute injuries found on the CT scan of your brain or cervical spine, it was just a superficial laceration that was repaired. Nine mami were used to repair the laceration. They can be removed in 10 days. You can go to primary care for removal, or you can return to the ER for removal. We updated your tetanus today it is valid for 10 years. Prescriptions: No Action amlodipine 10 mg tablet 10 mg PO DAILY Qty: 90 1RF lisinopril 20 mg tablet 20 mg PO DAILY Qty: 90 1RF metoprolol succinate 25 mg tablet extended release 24 hr 25 mg PO DAILY Qty: 90 1RF simvastatin 40 mg tablet 40 mg PO BEDTIME Print Language: Kinyarwanda
--- NOTE | 2025-02-07 18:40 | PC.NURSE ---
79 M presents to ED after having a fall and hitting his head in a liquour store after a few beers at the bar. Pt is A+Ox4, calm and cooperative. Pt has a gash in the bed of his head, bleeding controlled, 2/10 pain. Pt denies any CP or SOB.
[2025-02-07 18:42] LABS: MANUAL DIFF FLAG NO
[2025-02-07 18:45] LABS: Hematocrit 43.3 % (42.0-52.0); Hemoglobin 15.1 g/dl (14.0-18.0); Imm Gran Abs Auto 0.04 X10*3/uL (0.00-0.03); Imm Gran Pct Auto 0.4 % (0.0-0.4); Lymphocytes Absolute Auto 2.0 X10*3/uL (1.2-4.9); Mean Corpuscular HGB Conc 34.9 g/dl (31.0-36.0); Mean Corpuscular Hemoglobin 31.6 pg (27.0-33.0); Mean Corpuscular Volume 90.6 fL (80.0-98.0); NRBC Abs Auto 0.000 X10*3/uL (0.0-0.012); NRBC Pct Auto 0.0 /100WBC (0.0-0.2); Platelet Count 250 X10*3/uL (160-400); Red Blood Count 4.78 X10*6/uL (4.60-5.80); White Blood Count 9.4 X10*3/uL (4.8-10.8)
--- NOTE | 2025-02-07 18:46 | ECG_ITS ---
Test Reason : FALL Blood Pressure : */* mmHG Vent. Rate : 89 BPM Atrial Rate : 89 BPM P-R Int : 154 ms QRS Dur : 78 ms QT Int : 362 ms P-R-T Axes : 62 -12 43 degrees QTcB Int : 440 ms Sinus rhythm with Premature atrial complexes Otherwise normal ECG When compared with ECG of 23-Nov-2008 14:25, PACs present Referred By: Generic ED Physician Electronically Signed By: Stanton Moon
[2025-02-07 19:02] LABS: Alanine Aminotransferase 27 U/L (0-40); Albumin Level 4.7 g/dL (3.5-5.0); Alkaline Phosphatase 67 U/L (39-117); Anion Gap 16 (12-20); Aspartate Amino Transferase 37 U/L (5-37); Blood Urea Nitrogen 14 mg/dL (9-16); Calcium 9.5 mg/dL (8.4-10.2); Carbon Dioxide 21 mmol/L (22-29); Chloride 102 mmol/L (96-108); Creatinine Clr Calc Pharmacy 60.5; Estimated Glomerular Filt Rate > 60; Potassium 4.0 mmol/L (3.3-5.1); Sodium 135 mmol/L (135-145); Total Protein 7.8 g/dL (6.5-8.0)
--- NOTE | 2025-02-07 19:24 | PC.NURSE ---
CT scan of head/brain/cervical spine completed, patient is back to his room.
[2025-02-07 19:27] VITALS: BP 146/71; PULSE 91; TEMP 36.7; O2SAT 97
[2025-02-07] MEDS: Lidocaine HCl 1%/Epi 1:100,000 10 ML VIAL INFILTRATI (19:58)
[2025-02-07] MEDS: Diphth,Pertus(ACell),Tet Adult 0.5 ML SYRINGE IM (20:53)
[2025-02-07 21:01] VITALS: BP 140/83; PULSE 81; RESP 16; TEMP 36.8; O2SAT 97
== END 2025-02-07 21:10 | disposition home or self-care (01) ==
PROVIDERS: Physician Assistant Medical; Emergency Provider Emergency Medicine; PCP Internal Medicine
DX: S01.01XA Laceration without foreign body of scalp, initial encounter (principal); S00.03XA Contusion of scalp, initial encounter; W18.30XA Fall on same level, unspecified, initial encounter; F10.90 Alcohol use, unspecified, uncomplicated; Y90.3 Blood alcohol level of 60-79 mg/100 ml; I10 Essential (primary) hypertension; E78.5 Hyperlipidemia, unspecified; Z87.891 Personal history of nicotine dependence; Y93.89 Activity, other specified; Y92.512 Supermarket, store or market as the place of occurrence of the external cause; Y99.8 Other external cause status; Z23 Encounter for immunization
CPT/HCPCS: 12002; 36415; 70450; 72125; 80053; 80307; 85025; 90471; 90715; 93005; 99284; 99285; J2004

== ENCOUNTER → 2025-02-07 18:11 | Outpatient (BNV) | payer MEDICARE, SELFPAY | PROVIDERS: Emergency Provider Emergency Medicine; PCP Internal Medicine; Visit Provider Radiology Diagnostic Radiology | DX: S01.01XA Laceration without foreign body of scalp, initial encounter (principal); I67.82 Cerebral ischemia; G93.89 Other specified disorders of brain | CPT/HCPCS: 70450; 72125 ==

== ENCOUNTER → 2025-02-07 18:46 | Outpatient (BNV) | payer MEDICARE, SELFPAY | PROVIDERS: Emergency Provider Emergency Medicine; PCP Internal Medicine; Visit Provider Internal Medicine Cardiovascular Disease | DX: I49.1 Atrial premature depolarization (principal) | CPT/HCPCS: 93010 ==

== ENCOUNTER 2025-02-18 11:03 | Outpatient (REF) | payer MEDICARE, SELFPAY ==
[2025-02-18 12:20] LABS: Appearance Urine Clear; Glucose Urine UA Negative (Negative); PH 6.0 (5.0-9.0); Specific Gravity - Urine 1.020 (1.005-1.025); UMIC TRIGGER UACC YES
[2025-02-18 12:37] LABS: UACC Culture Trigger YES
== END 2025-02-18 11:04 | disposition home or self-care (01) ==
LOC: HO.LAB 11:03
PROVIDERS: PCP Internal Medicine; Visit Provider Internal Medicine
DX: S01.01XD Laceration without foreign body of scalp, subsequent encounter (principal); I10 Essential (primary) hypertension; F32.A Depression, unspecified
CPT/HCPCS: 81001; 87086; 99212

== ENCOUNTER 2025-02-18 11:03 | Outpatient (AMB) | payer MEDICARE, SELFPAY ==
--- NOTE | 2025-02-18 10:59 | MHC.PC.OV ---
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 The laceration location on the back of the head is well healed. Daughter accompanies and requests urinalysis -no symptoms. Patient daughter notes that he is having some mild memory loss over the past couple of years. He gets frustrated a lot more easily than in the past ROS see HPI PHYSICAL EXAM: GENERAL: Alert and oriented x 3. NAD EYES: EOMI. Anicteric. HENT: Moist mucous membranes. No scleral icterus. No cervical lymphadenopathy. LUNGS: Clear to auscultation bilaterally. CARDIOVASCULAR: Regular rate and rhythm. No murmur. No JVD. ABDOMEN: Soft, non-tender +bs EXTREMITIES: No edema. Non-tender. SKIN: No rashes or lesions. Warm. NEUROLOGIC: No focal neurological deficits. CN II-XII grossly intact PSYCHIATRIC: Cooperative. Appropriate mood and affect REPLACED BY [facility] Medical History Left foot pain Diverticulosis Hyperlipidemia HTN (hypertension) Surgical History History of colectomy History of colonoscopy Family History Father Diabetes Sister Uterine cancer Mother No problems noted. Father No problems noted. Social History Housing: Apartment Alcohol intake: current Alcohol intake frequency: 3 or more drinks per day Alcohol type: beer Patient Tobacco Use Status: Former Tobacco user e-Cigarette/Vaping Use: Former Use service: Yes Current occupational status: retired Cognitive needs: No Hearing needs: No Vision needs: Yes (reading glasses) Questionnaire Thrive Questionnaire Date Thrive assessed: 01/10/25 FLO-7 AMB Questionnaire FLO-7 Date FLO - 7 assessed: 01/10/25 Source: Developed by Drs. Basim Umana, Aida Ha, aMck Yates and colleagues, with an educational lu from [employer]. Physical exam (Primary Care) Vital Signs: Last Vital Signs Temp 97.3 F 02/18/25 11:07 Pulse 64 02/18/25 11:07 Resp 16 02/18/25 11:07 BP 130/68 02/18/25 11:07 Pulse Ox 97 02/18/25 11:07 Oxygen Delivery Method Room Air 02/18/25 11:07 Tobacco/Smoking Status: Tobacco use Status Tobacco use date assessed 01/10/25 02/18/25 11:02 Patient Tobacco Use Status Former Tobacco user 02/18/25 11:02 e-Cigarette/Vaping Use Former Use 02/18/25 11:02 Thrive Assessment: Date of Thrive Assessment Date Thrive assessed 01/10/25 02/18/25 11:02 Coding Level of Care Code Est Pt Level 4 (74606) Diagnoses Laceration of head without foreign body, unspecified part of head, subsequent encounter S01.91XD Encounter type: subsequent encounter Foreign body presence: without foreign body Location of open wound of head: unspecified part of head Primary hypertension I10 Hypertension type: primary hypertension Mild depression F32.A Assessment & Plan Assessment & Plan (1) Laceration of head: Code(s): S01.91XA - Laceration without foreign body of unspecified part of head, initial encounter Category: Medical Qualifiers: Encounter type: subsequent encounter Foreign body presence: without foreign body Location of open wound of head: unspecified part of head Qualified Code(s): S01.91XD - Laceration without foreign body of unspecified part of head, subsequent encounter (2) HTN (hypertension): Code(s): I10 - Essential (primary) hypertension Category: Medical Qualifiers: Hypertension type: primary hypertension Qualified Code(s): I10 - Essential (primary) hypertension (3) Mild depression: Code(s): F32.A - Depression, unspecified Category: Medical Plan 79 y old for suture removal Suture removal uncomplicated depression, memory loss-start zoloft Orders: Orders UA CC w/rflx Micro + Cult 02/18/25 W19.XXXA - Unspecified fall, initial encounter Medications: New sertraline Take one half tab oral once daily for one week then increase to one tablet oral daily 25 mg PO DAILY 90 tabs 0RF
[2025-02-18 11:07] VITALS: BP 130/68; PULSE 64; RESP 16; TEMP 36.3; O2SAT 97
--- OUTSIDE RECORDS SUMMARY | 2025-02-18 11:09 | XMS_ITS | Patient Health Record ---
Author Organization [facility] Address [address] [place] [address] Care Team Providers Care Emergency Room Rn Name Role Phone Alison (RETIRED) Micheal JI Primary Care Provide r Unavailable Basim Treadwell Unavailable [phone] Reason For Referral No Information Plan Of Treatment No Information Insurance Providers Payer Name Payer Address Payer Phone Subscriber Number Group Number Insured Name Patient Relationship to Insured Coverage Start Date Coverage End Date [facility] [address] [place] [phone] [id number] BASIM CALDERON Self - patient is the insured
== END 2025-02-18 13:12 | disposition home or self-care (01) ==
LOC: HO.HMCHD 11:03
PROVIDERS: PCP Internal Medicine; Visit Provider Internal Medicine
DX: S01.81XA Laceration without foreign body of other part of head, initial encounter (principal); I10 Essential (primary) hypertension; F32.A Depression, unspecified

== ENCOUNTER 2025-07-04 09:44 | Outpatient (AMB) | payer MEDICARE, SELFPAY ==
--- NOTE | 2025-07-04 10:00 | MHC.PC.OV ---
Vital Signs 07/04/25 10:04 Height 5 ft 5 in Weight 142 lb BMI 23.6 BP 128/52 L Blood Pressure Location Lt brachial Position Sitting Respiration 18 Pulse 91 Pulse Source Pulse Oximeter Temp 98.5 F Temp Source Temporal Artery Scan Pulse Oximetry (%) 96 Oxygen Delivery Method Room Air Intake Visit Reasons: routine - see comments [place] Required: No Accompanied by: Self / Same As Patient Allergies No Known Allergies Allergy (Mild, Verified 07/04/25 10:00) NOT APPLICABLE Medication List - Last Reconciled 07/04/25 by Jonathon Stack MD amlodipine 10 mg PO DAILY lisinopril 20 mg PO DAILY metoprolol succinate ER 25 mg PO DAILY sertraline 25 mg PO DAILY simvastatin 40 mg PO BEDTIME Tobacco use date assessed: 01/10/25 Fall risk assessment: No Falls in past year Last assessed Fall Risk: 07/04/25 Dental Screening Dental Screen Date: 01/10/25 HPI HPI Comments History of Present Illness Details History of Present Illness The patient is a 79 year old male presenting for a follow-up visit and medication management. He reports feeling well overall. He notes experiencing confusion, particularly with his finances, which he attributes to getting older. The patient's medical history includes hypertension, hyperlipidemia, and a mood disorder, for which he takes amlodipine 10 mg, lisinopril 20 mg, metoprolol succinate 25 mg, atorvastatin 40 mg, and sertraline 25 mg, respectively. His last blood work in January was noted to be good, with stable blood counts, kidney function, and blood sugar levels. The patient disclosed significant alcohol consumption, reporting that he drinks two to three beers five days per week. He acknowledges that this amount is excessive. The patient has a history of quitting alcohol for seven to eight years in the past. Medical History: - Hypertension - Hyperlipidemia - Mood disorder - History of alcohol abuse Medications: - Amlodipine 10 mg for hypertension - Lisinopril 20 mg for hypertension - Metoprolol succinate 25 mg for hypertension - Atorvastatin 40 mg for hyperlipidemia - Sertraline 25 mg for mood Diagnostic Results: - Labs (January): Blood counts, kidney function, and sugars were all reported as good and stable. Social History - Substance Use: The patient denies use of illicit drugs. - Alcohol Use: The patient reports drinking beer at a local establishment that brews its own beer. - Amount and Frequency of Alcohol Consumption: He drinks two to three beers approximately five days a week. - Patient's Perception of Alcohol Use: He acknowledges his alcohol intake is excessive. - Patient's History with Alcohol: He previously quit drinking for seven to eight years. - Living Situation: The patient lives by himself and is independent with activities of daily living. 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 - Driving: He drives locally for errands but does not drive long distances. - Social Support: His daughter and grandson live in [place] and provide transportation for holidays. - Activities: He remains active by shopping for himself and socializing with friends. [facility] Medical History (Updated 07/04/25 @ 10:26 by Jonathon Stack MD) Alcohol use disorder Left foot pain Diverticulosis Hyperlipidemia HTN (hypertension) Surgical History History of colectomy History of colonoscopy Family History Father Diabetes Sister Uterine cancer Mother No problems noted. Father No problems noted. Social History Housing: Apartment Alcohol intake: current Alcohol intake frequency: 3 or more drinks per day Alcohol type: beer Patient Tobacco Use Status: Former Tobacco user e-Cigarette/Vaping Use: Former Use service: Yes Current occupational status: retired Cognitive needs: No Hearing needs: No Vision needs: Yes (reading glasses) Questionnaire Thrive Questionnaire Date Thrive assessed: 01/10/25 AUDIT C Alcohol Use Questionnaire (AUDIT-C) 1. How often do you have a drink containing alcohol?: 4 or more times a week 2. How many drinks containing alcohol do you have on a typical day when you are drinking?: 3 or 4 3. How often do you have six or more drinks on one occasion?: Never Total Score: 5 Score Reviewed/Action Taken: Yes FLO-7 AMB Questionnaire FLO-7 Date FLO - 7 assessed: 01/10/25 Source: Developed by Drs. Basim Umana, Aida Ha, Mack Yates and colleagues, with an educational lu from [employer]. Review of Systems Narrative Review of Systems - General: Reports feeling well. - Neurological: Reports confusion. All systems reviewed & are unremarkable except as reviewed in HPI and above Physical exam (Primary Care) Vital Signs: Last Vital Signs Temp 98.5 F 07/04/25 10:04 Pulse 91 07/04/25 10:04 Resp 18 07/04/25 10:04 BP 128/52 L 07/04/25 10:04 Pulse Ox 96 07/04/25 10:04 Oxygen Delivery Method Room Air 07/04/25 10:04 BMI result Body Mass Index 23.6 Tobacco/Smoking Status: Tobacco use Status Tobacco use date assessed 01/10/25 07/04/25 10:02 Patient Tobacco Use Status Former Tobacco user 07/04/25 10:02 e-Cigarette/Vaping Use Former Use 07/04/25 10:02 Thrive Assessment: Date of Thrive Assessment Date Thrive assessed 01/10/25 07/04/25 10:02 Narrative Physical Exam General: +Alert and oriented, Well nourished, No acute distress. Eye: Pupils are equal, round and reactive to light, Intact accommodation, Extraocular movements are intact, Normal conjunctiva, Vision unchanged. HENT: Normocephalic, Atraumatic, Tympanic membranes are clear, Normal hearing, Oral mucosa is moist, No pharyngeal erythema, Ear canals patent. Respiratory: Lungs CTA bilaterally, No wheeze, Respirations are non-labored. Cardiovascular: Regular rate, Regular rhythm, S1 auscultated, S2 auscultated, No murmur, Good pulses equal in all extremities, Normal peripheral perfusion, No edema. Gastrointestinal: Soft, Non-tender, Non-distended, Normal bowel sounds, No organomegaly. Musculoskeletal: Normal range of motion, Normal strength, No tenderness, No swelling, No deformity, Normal gait. Integumentary: Warm, Dry, [place], Intact. Neurologic: Alert, Oriented, Normal sensory, Normal motor function, No focal defects, Cranial Nerves II-XII are grossly intact, Normal deep tendon reflexes. Psychiatric: Cooperative, Appropriate mood & affect, Normal judgment. Coding Level of Care Code Est Pt Level 4 (29513) Add On Problem Visit Only Diagnoses Primary hypertension I10 Hypertension type: primary hypertension Other hyperlipidemia E78.49 Hyperlipidemia type: other hyperlipidemia Mild depression F32.A Alcohol use disorder F10.90 Assessment & Plan Assessment & Plan (1) HTN (hypertension): Comment: Blood pressure currently stable on home regimen of amlodipine 10 mg, lisinopril 20 mg daily and metoprolol 25 mg daily Advised to continuation of same regimen Code(s): I10 - Essential (primary) hypertension Category: Medical Qualifiers: Hypertension type: primary hypertension Qualified Code(s): I10 - Essential (primary) hypertension (2) Hyperlipidemia: Comment: Last lipid panel completed a few months ago and currently on simvastatin 40 mg. We will repeat lipid panel in 6 months and re-evaluate Code(s): E78.5 - Hyperlipidemia, unspecified Category: Medical Qualifiers: Hyperlipidemia type: other hyperlipidemia Qualified Code(s): E78.49 - Other hyperlipidemia (3) Mild depression: Comment: With stable on sertraline 25 mg daily Code(s): F32.A - Depression, unspecified Category: Medical (4) Alcohol use disorder: Comment: - The patient's reported alcohol intake of 2-3 drinks 5 days a week is considered unsafe. - He has been counseled to reduce his alcohol consumption to a maximum of one to two drinks, three to four times a week. Code(s): F10.90 - Alcohol use, unspecified, uncomplicated Category: Medical Plan: Health Maintenance: - Counseled patient on unsafe alcohol use, recommending a reduction to no more than one to two drinks, a maximum of three to four times per week. Patient was informed and verbally consented to the use of an ambient scribe for clinic note documentation during this visit. Plan I reviewed the patient's current health status and noted that his lab work from January was stable. I informed him that no changes to his medications were necessary at this time. We had an extensive discussion about his alcohol consumption, which I identified as unsafe at his reported level of two to three drinks, five days a week. I explained that this level of alcohol use could cause problems and that he must cut down. I recommended he reduce his intake to one to two drinks per day, for a maximum of three to four times per week. The patient agreed to try to make this change. I informed the patient that he will have a follow-up visit with me in four months, at which time I will re-evaluate his alcohol use. Patient Instructions: - Your current level of alcohol use is not safe and could cause health problems. - You need to cut back on your drinking. - Please limit yourself to one or two drinks per day, and do not drink more than three to four times per week. - Continue taking your current medications as prescribed, including amlodipine, lisinopril, metoprolol, atorvastatin, and sertraline. - Schedule a follow-up appointment to see me again in four months.
[2025-07-04 10:04] VITALS: BP 128/52; PULSE 91; RESP 18; TEMP 36.9; O2SAT 96; BMI 23.6
== END 2025-07-04 10:22 | disposition home or self-care (01) ==
PROVIDERS: PCP Student in an Organized Health Care Education/Training Program; Visit Provider Student in an Organized Health Care Education/Training Program
DX: I10 Essential (primary) hypertension (principal); E78.49 Other hyperlipidemia; F32.A Depression, unspecified; F10.90 Alcohol use, unspecified, uncomplicated

== ENCOUNTER → 2025-07-04 09:44 | Outpatient (BNVA) | payer MEDICARE, SELFPAY | PROVIDERS: PCP Internal Medicine; Visit Provider Student in an Organized Health Care Education/Training Program | DX: I10 Essential (primary) hypertension (principal); E78.49 Other hyperlipidemia; F32.A Depression, unspecified; F10.90 Alcohol use, unspecified, uncomplicated; Z79.899 Other long term (current) drug therapy | CPT/HCPCS: 99212 ==